=== PATIENT | female | born 1995 ===

== ENCOUNTER 2017-09-17 00:16 | Inpatient (IN) | payer MEDICAID, OTHER, SELFPAY ==
[2017-09-17 00:52] VITALS: BMI 27.3
[2017-09-17] MEDS ORDERED: Penicillin G 5 Million Unit Vial IVPB ONE ×2 (00:52→01:14)
[2017-09-17] MEDS ORDERED: Lactated Ringer's 1,000 ML IV SCH (01:00)
--- NOTE | 2017-09-17 01:02 | OBADHP ---
Datetime: 09/17/2017 00:55 Admit Comment, IP Provider: chief complaint-contractions, leaking of fluid HPI 21 y/o at 39.2wga with c/o episode of gush of fluid and contractions. course [facility] PMH denies PSH denies OBGYN HX ; [id number] Social hx denies tobacco,alcohol or illicit drug use Exam see exam section A/P 21 y/o at 39.2wga with SROM/Labor -gb sunknown.startr pen G -monitor closely -anticipate nvd Pelvic Type - PN: Adequate Extremities - PN: Normal Abdomen - PN: Normal Back - PN: Normal Breast - PN: Normal Lungs - PN: Normal Heart - PN: Normal Neurologic - PN: Normal General - PN: Normal Weight - Estimated: 3200 Presentation-Admit: Vertex Membranes, Provider: Ruptured Contraction Comments Provider: irregular Gestation - Est Wks by US: 39.2 Pool Provider: Negative Nitrazine Provider: Positive Ferning Provider: Positive IP Hx Assessment: The History has been Reviewed and is Current Vital Signs Provider: Reviewed; Within Normal Limits IP Chief Complaint: Uterine contractions; Suspected ruptured membranes FHR Category Provider Fetus A: Category I Dilatation, Provider: 4 Effacement, Provider: 80 Station, Provider: -2 Genitourinary Exam: Normal DTRs - PN: Normal EGA AdmitDate IP: 39.2 IP Adm Impression: Term, intrauterine ; Active labor; Ruptured Membranes IP Admit Plan: Admit to unit; Initiate labor protocol
[2017-09-17 01:32] LABS: BASO # 0.1 K/uL (0.0-0.2); BASO % 0.8 % (0.0-2.0); EOS # 0.2 K/uL (0.0-0.7); EOS % 1.3 % (0.0-4.0); HEMOGLOBIN 11.7 g/dL (11.0-16.0); LYMPH # 3.7 K/uL (1.0-4.3); LYMPH % 32.8 % (20.0-40.0); MEAN CELL VOLUME 88.4 fL (81.0-99.0); MEAN PLATELET VOLUME 8.4 fL (7.2-11.7); MONO # 0.5 K/uL (0.0-0.8); MONO % 4.6 % (0.0-10.0); NEUT # 6.8 K/uL (1.8-7.0); NEUT % 60.5 % (50.0-75.0); NRBC % 0.1 % (0.0-2.0); RBC 3.79 Mil/uL (3.80-5.20); RED CELL DISTRIBUTION WIDTH 15.1 % (11.5-14.5); WHITE BLOOD COUNT 11.2 K/uL (4.8-10.8)
[2017-09-17 01:36] LABS: SQUAMOUS EPITHIAL 2 /hpf (0-5); URINE BACTERIA RARE (<OCC); URINE BILIRUBIN NEGATIVE (NEGATIVE); URINE BLOOD NEGATIVE (NEGATIVE); URINE CLARITY Clear (Clear); URINE COLOR Yellow (YELLOW); URINE GLUCOSE (UA) NORMAL (Normal); URINE LEUKOCYTE ESTERASE 1+ Leu/uL (Negative); URINE NITRATE NEGATIVE (NEGATIVE); URINE PROTEIN NEGATIVE (NEGATIVE)
[2017-09-17 01:46] LABS: BARBITURATES, UR NEGATIVE (NEGATIVE); BENZODIAZEPINES, UR NEGATIVE (NEGATIVE); OPIATES, UR NEGATIVE (NEGATIVE); PHENCYCLIDINE, UR NEGATIVE (NEGATIVE)
[2017-09-17 01:53] LABS: ALB/GLOB RATIO 0.9 (1.0-2.1); ALBUMIN 3.6 g/dL (3.5-5.0); CALCIUM 9.1 mg/dl (8.6-10.4); GFR AFRICAN-AMERICAN > 60; GFR NON-AFRICAN AMERICAN > 60
[2017-09-17 01:55] LABS: ALT/SGPT 37 U/L (9-52); AST/SGOT 48 U/L (14-36); BLOOD UREA NITROGEN 10 mg/dL (7-17)
[2017-09-17] MEDS ORDERED: Benzocaine/Menthol 20%-0.5% Topical Spray (60 ml) TOP PRN (08:13)
[2017-09-17] MEDS ORDERED: Oxycodone/Acetaminophen 5/325 mg Tab PO PRN (08:13)
--- NOTE | 2017-09-17 08:13 | OBDS ---
DELIVERY PERSONNEL Delivery Doctor: Bridger Martinez MD Grants Administrator: Todd Den RN MATERNAL INFORMATION Delivery Anesthesia: None Estimated Blood Loss (ml): 250 Provider Comments: of a male infant body and shoulders delivered without difficulty.Cord clamped and cut.cord blood collected.placenta sponatneously delivered.perineum intact fu dus firm ebl 250cc LABOR SUMMARY EDC: 09/22/2017 00:00 LABOR INFORMATION Onset of Labor: 09/16/2017 18:00 Group B Beta Strep: Done, Result Unknown MEMBRANES Membranes Rupture Method: Spontaneous Rupture of Membranes: 09/16/2017 23:00 Amniotic Fluid Color: Clear Amniotic Fluid Amount: Small VAGINAL DELIVERY Episiotomy: None Laceration Extension: N/A Laceration Type: None Laceration Repair: Not Applicable Sponge Count Correct: Yes; Vaginal Sweep Performed Sharps Count Correct: N/A BABY A INFORMATION Method of Delivery: Vaginal Born in Route : No : N/A Forceps: N/A Vacuum Extraction: N/A Shoulder Dystocia : No PRESENTATION/POSITION BABY A Presentation: Cephalic Cephalic Presentation: Vertex Vertex Position: Left Occipital Anterior Breech Presentation: N/A PLACENTA INFORMATION BABY A Placenta Method of Delivery: Spontaneous Placenta Status: Delivered INFANT INFORMATION BABY A Gestational Age at Delivery: 39.2 Gestational Status: Term Outcome : Liveborn Condition : Stable Infant Sex: Male IDENTIFICATION/MEDS BABY A ID Band Location: Left Leg; Left Arm Sensor Applied: Yes CORD INFORMATION BABY A No. Cord Vessels: 3 Cord Blood Taken: Yes Suction: Mouth; Nose
[2017-09-17] MEDS: Multiple Vitamins Tab PO SCH (13:08)
[2017-09-18 00:06] VITALS: RESP 20
[2017-09-18 08:01] LABS: BASO # 0.1 K/uL (0.0-0.2); BASO % 0.5 % (0.0-2.0); EOS # 0.2 K/uL (0.0-0.7); EOS % 1.3 % (0.0-4.0); LYMPH # 4.1 K/uL (1.0-4.3); LYMPH % 31.4 % (20.0-40.0); MEAN CELL VOLUME 90.2 fL (81.0-99.0); MEAN CORPUSCULAR HEMOGLOBIN 30.8 pg (27.0-31.0); MEAN CORPUSCULAR HGB CONC 34.1 g/dL (33.0-37.0); MEAN PLATELET VOLUME 8.7 fL (7.2-11.7); MONO # 0.7 K/uL (0.0-0.8); MONO % 5.5 % (0.0-10.0); NEUT % 61.3 % (50.0-75.0); RBC 3.15 Mil/uL (3.80-5.20); RED CELL DISTRIBUTION WIDTH 15.4 % (11.5-14.5)
[2017-09-18 08:09] LABS: HEMOGLOBIN 9.7 g/dL (11.0-16.0)
[2017-09-18] MEDS: Multiple Vitamins Tab PO SCH (10:18)
[2017-09-18] MEDS ORDERED: Ferrous Fum/Folic Acid/IF/VI 1 Cap PO SCH (15:00)
--- NOTE | 2017-09-18 15:06 | OBPPN ---
Datetime: 09/18/2017 15:00 PP Pain Prov: Within normal limits PP Nausea Prov: Denies PP Flatus Prov: Yes PP BM Prov: Yes PP Breasts Prov: Normal PP Heart Prov: Normal PP Lungs Prov: Normal PP Abdomen/Uterus Prov: Normal PP Lochia Prov: Normal PP Vulva/Perineum Prov: Not Done PP CVA Tenderness Prov: Normal PP Extremities Prov: Normal PP C/S Incision Prov: Not Applicable PP Progress Prov: Normal PP Comments Phys Exam Prov: Abdomen: Soft, non distended. Fundus firm, mobile, non tender, 1 FB belo w umbilicus. Mild lochia rubra. Extremities: no calf tenderness. All other systems reviewed and are negative PP Impression Prov: Normal progression PP Plan Prov: Continue present management PP Progress Note Prov: Patient received in room 452. Breast- and bottlefeeding. Ambulating and voi ding without difficulty. Denies nausea, vomiting, headaches or dizziness. P.E.: as above. WD in NAD. Awake, alert, oriented to time, person and place. Pleasnat and coopera tive - PPD#1 H/H [id number]. Rh(+) Asasessment: PPD#1, 21 y.o. P2, S/P . Afebrile, vital signs stable. Acute blood loss anemia - a symptomatic and hemodynamically stable. Clinically stable Plan: 1) Start iron daily 2) Continue present management 3) Anticipate discharge home 09/19/17
[2017-09-19 00:23] VITALS: O2SAT 98
--- NOTE | 2017-09-19 07:34 | OBPPN ---
Datetime: 09/19/2017 07:33 PP Pain Prov: Within normal limits PP Nausea Prov: Denies PP Flatus Prov: Yes PP Abdomen/Uterus Prov: Normal PP Lochia Prov: Normal PP Extremities Prov: Normal PP Comments Phys Exam Prov: fudus below umb ext no edema,no calf ten PP Impression Prov: Normal progression PP Plan Prov: Discharge PP Progress Note Prov: pt was seen at bed side, pain under control,no n/v, tolerating deit,voiding,m in lochia, [place]+ ppd#2 s/p dc home no sex morein prn f/u in 6week Vital Signs Provider PP: Reviewed; Within Normal Limits
--- NOTE | 2017-09-19 07:36 | OBDCSUM ---
Datetime: 09/19/2017 07:34 Discharged to, Provider: Home Follow up at, Provider: 6week Disch Instr Diet: Regular Discharge Diagnosis, Provider: Term Delivered Follow up in weeks, Provider: clinic Disch Activity Restrictions: No exercising; No lifting; No driving; Minimize walking; Minimize stair -climbing; No sexual activity; Nothing in vagina - [place], tampons, douche
[2017-09-19] MEDS ORDERED: Influenza Vaccine 60 mcg/0.5 mL SYR (4YR UP) IM ONE (10:00)
[2017-09-19] MEDS: Multiple Vitamins Tab PO SCH (11:03)
[2017-09-19 20:05] VITALS: BP 97/67; PULSE 96; TEMP 98.4
== END 2017-09-19 14:20 | disposition home or self-care (01) | DRG 373 ==
LOC: C.EROB 00:16 → C.4D 00:52 → C.4M 12:50
PROVIDERS: ADMIT Student in an Organized Health Care Education/Training Program; ATTEND Student in an Organized Health Care Education/Training Program
PROC: 10E0XZZ Delivery of Products of Conception, External Approach (ICD-10-PCS; principal; 2017-09-17)
DX: O99.02 Anemia complicating childbirth (principal); D62 Acute posthemorrhagic anemia; Z3A.39 39 weeks gestation of pregnancy; Z37.0 Single live birth